=== PATIENT | female | born 1950 | race African-American/Black ===

== ENCOUNTER → 2023-03-06 | Day surgery (SDC) | payer MEDICARE ==
[~2023-03-06] MED LIST: Iopamidol-M 200 41% 10 ML VIAL FS ONE; Lidocaine 1% PF 5 ML VIAL ONE; Sodium Bicarbonate 2.5 MEQ/5 ML VIAL ONE
== END ==
LOC: CSHRAD 12:30
PROVIDERS: ATTEND Neurological Surgery
DX: M54.16 Radiculopathy, lumbar region (principal)
CPT/HCPCS: 62304; 72132; Q9966